=== PATIENT | female | born 1985 | race Caucasian/White ===

== ENCOUNTER → 2017-08-01 | Outpatient (CLI) | payer OTHER ==
--- NOTE | 2017-08-01 15:17 | MAMMOGRAPHY REPORT ---
UNILATERAL LEFT DIGITAL DIAGNOSTIC MAMMOGRAM TOMOSYNTHESIS WITH CAD AND TARGETED LEFT ULTRASOUND: 07/18 CLINICAL HISTORY: The patient reports a 1.5 month history of an area of focal pain and a possible ass ociated lump in the left breast. She has a family history of breast cancer including her paternal au nt and grandmother. She has a pacemaker for sick sinus syndrome. TECHNIQUE: Breast tomosynthesis in addition to standard 2D mammography was performed. Current study was also evaluated with a Computer Aided Detection (CAD) system. Left CC and MLO and XCCL 2D and marquita osynthesis images were obtained. COMPARISON: No prior exams were available for comparison. BREAST COMPOSITION: The tissue of the left breast is heterogeneously dense, which may obscure small masses. FINDINGS: A square marker henson the site of pain pointed out by the patient in the left lower inner q uadrant. There are no suspicious masses, calcifications, or areas of architectural distortion noted in the left breast. A few scattered punctate benign-appearing calcifications are noted. A pacemaker overlies the left pectoralis muscle. Targeted ultrasound was performed of the area of focal pain and possible lump pointed out by the gilson ent, in the left breast at approximately 6:00 centered around 4 cm from the nipple. Sonographically normal tissue is seen in this region, without evidence of a mass or other suspicious sonographic abno rmality. IMPRESSION: ACR BI-RADS CATEGORY 2: BENIGN, TARGETED ULTRASOUND ACR BI-RADS CATEGORY 2: BENIGN No suspicious mammographic or sonographic abnormality at the site of focal left breast pain and possi ble lump pointed out by the patient. There is no mammographic or targeted sonographic evidence of ma lignancy. Recommend clinical follow-up for left breast symptoms, and recommend routine bilateral scr eening mammograms starting at age 40. The patient has been verbally notified of the results. Approximately 10% of breast cancers are not detected with mammography. A negative mammographic report should not delay biopsy if a clinically suggestive mass is present. Jazmyn Chand M.D. /:08/01/2017 11:31:52 Ray[place] Tester: Belen Guillaume, [facility] letter sent: Normal 1/2 BI-RADS Code: ACR BI-RADS Category 2: Benign Ultrasound BI-RADS: ACR BI-RADS Category 2: Benign
== END | disposition home or self-care (01) ==
LOC: C.MAMM 11:01
PROVIDERS: ATTEND Obstetrics & Gynecology
DX: R92.8 Other abnormal and inconclusive findings on diagnostic imaging of breast (principal)